=== PATIENT | female | born 1955 | race Caucasian/White ===

== ENCOUNTER → 2018-01-14 | Outpatient (CLI) | payer OTHER | LOC: M LRY 10:43 | DX: J93.9 Pneumothorax, unspecified (principal); J98.11 Atelectasis | CPT/HCPCS: 71046 ==

== ENCOUNTER → 2018-01-14 | Outpatient (REF) | payer OTHER ==
[2018-01-14 11:49] LABS: BASO # 0.1 10^3/uL (0.0-0.2); BASO % 0.8 % (0.0-1.0); EOS # 0.2 10^3/uL (0.0-0.50); EOS % 2.2 % (0.0-3.0); HEMATOCRIT 45.1 % (36.0-47.0); HEMOGLOBIN 15.3 g/dl (12.0-15.5); IMMATURE GRANULOCYTE % 0.3 % (0-3.0); LYMPH # 2.1 10^3/uL (1.5-4.5); LYMPH % 24.2 % (24.0-44.0); MEAN CORPUSCULAR HEMOGLOBIN 31.7 pg (27.0-33.0); MEAN CORPUSCULAR HGB CONC 33.9 g/dl (32.0-36.5); MEAN CORPUSCULAR VOLUME 93.4 fl (80.0-96.0); MONO # 0.6 10^3/uL (0.0-0.8); MONO % 6.3 % (0.0-5.0); NEUTROPHILS # 5.8 10^3/uL (1.8-7.7); NEUTROPHILS % 66.2 % (36.0-66.0); PLATELET COUNT, AUTOMATED 220 10^3/uL (150-450); RED BLOOD COUNT 4.83 10^6/uL (4.00-5.40); RED CELL DISTRIBUTION WIDTH 13.2 % (11.5-14.5); WHITE BLOOD COUNT 8.8 10^3/uL (4.0-10.0)
[2018-01-14 12:27] LABS: ANION GAP 6 MEQ/L (8-16); BLOOD UREA NITROGEN 17 MG/DL (7-18); CALCIUM LEVEL 9.7 MG/DL (8.8-10.2); CARBON DIOXIDE LEVEL 31 MEQ/L (21-32); CHLORIDE LEVEL 104 MEQ/L (98-107); CHOLESTEROL LEVEL 272 MG/DL (<200); CHOLESTEROL RISK RATIO 6.634 (<5); CREATININE FOR GFR 0.86 MG/DL (0.55-1.30); GLOMERULAR FILTRATION RATE > 60.0 (>45); GLUCOSE, FASTING 93 MG/DL (70-100); HDL CHOLESTEROL 41 MG/DL (>40); NON-HDL-C 231 MG/DL; POTASSIUM SERUM 4.9 MEQ/L (3.5-5.1); SODIUM LEVEL 141 MEQ/L (136-145); TRIGLYCERIDES LEVEL 180 MG/DL (<150)
== END ==
LOC: M SFHCLERA 10:20
DX: R22.1 Localized swelling, mass and lump, neck (principal); E78.00 Pure hypercholesterolemia, unspecified

== ENCOUNTER → 2018-03-10 | Outpatient (CLI) | payer OTHER ==
[2018-03-10 18:56] LABS: C REACTIVE PROTEIN QUANTITATIV < 0.30 MG/DL (0.00-0.30)
[2018-03-10 19:08] LABS: ERYTHROCYTE SEDIMENTATION RATE 10 mm/hr (0-30)
[2018-03-12 13:43] LABS: TISSUE TRANSGLUTAMINASE IgA <2 U/mL (0-3)
== END ==
LOC: M LRY 10:44
DX: R19.7 Diarrhea, unspecified (principal)
CPT/HCPCS: 84443

== ENCOUNTER → 2018-03-10 | Outpatient (CLI) | payer OTHER | LOC: M LRY 10:39 | DX: J84.9 Interstitial pulmonary disease, unspecified (principal) | CPT/HCPCS: 71046 ==

== ENCOUNTER → 2018-03-17 | Outpatient (CLI) | payer OTHER ==
[~2018-03-17] MED LIST: ISOVUE-370 76% 100ML VIAL (Q9967) As Ordered
== END ==
LOC: M RAD 11:07
DX: R05 Cough (principal); R22.1 Localized swelling, mass and lump, neck
CPT/HCPCS: Q9967

== ENCOUNTER 2018-04-05 07:12 | Day surgery (SDC) | payer OTHER ==
[2018-04-05] MEDS ORDERED: NS 1,000 ML IV (08:00)
[2018-04-05] MEDS ORDERED: PROPOFOL 500 MG/50 ML VIAL As Ordered (08:33)
[2018-04-05] MEDS ORDERED: LIDOCAINE 2% INJ 100 MG/5 ML SDV (FOR ANES.) As Ordered (08:33)
== END 2018-04-05 09:15 | disposition home or self-care (01) ==
LOC: M OPP 09:15
DX: R19.7 Diarrhea, unspecified (principal); Z80.0 Family history of malignant neoplasm of digestive organs; Z86.010 Personal history of colon polyps; K57.30 Diverticulosis of large intestine without perforation or abscess without bleeding; K64.8 Other hemorrhoids; R14.0 Abdominal distension (gaseous); M19.90 Unspecified osteoarthritis, unspecified site; F41.9 Anxiety disorder, unspecified; F32.9 Major depressive disorder, single episode, unspecified; R51 Headache; R06.83 Snoring; R06.02 Shortness of breath; Z87.09 Personal history of other diseases of the respiratory system; F17.210 Nicotine dependence, cigarettes, uncomplicated; Z79.899 Other long term (current) drug therapy
CPT/HCPCS: 45378

== ENCOUNTER → 2018-04-14 | Outpatient (REF) | payer OTHER | LOC: M LAB REF 15:00 | DX: D11.0 Benign neoplasm of parotid gland (principal) ==

== ENCOUNTER 2018-05-18 07:57 | Day surgery (SDC) | payer OTHER ==
[2018-05-18] MEDS: LR 1,000 ML IV (08:50)
[2018-05-18] MEDS ORDERED: dexameTHASONE 4 MG/ML 1ML VIAL (J1100) As Ordered (09:25)
[2018-05-18] MEDS ORDERED: fentaNYL 100 MCG/2 ML INJECTION (J3010) As Ordered (09:25)
[2018-05-18] MEDS ORDERED: SUCCINYLCHOLINE 100 MG/5 ML SYRINGE (J0330) As Ordered (09:25)
[2018-05-18] MEDS ORDERED: PROPOFOL 200 MG/20 ML VIAL As Ordered (09:25)
[2018-05-18] MEDS ORDERED: MIDAZOLAM INJ 2 MG/2 ML VIAL (J2250) As Ordered (09:25)
[2018-05-18] MEDS ORDERED: LIDOCAINE 2% INJ 100 MG/5 ML SDV (FOR ANES.) As Ordered (09:25)
[2018-05-18] MEDS ORDERED: REMIFENTANIL 1MG 3ML VIAL As Ordered (10:26)
[2018-05-18] MEDS ORDERED: ePHEDrine SULFATE 25 MG/5 ML(5MG/ML) SYRINGE As Ordered (10:30)
[2018-05-18] MEDS: dexameTHASONE 4 MG/ML 1ML VIAL (J1100) IV (10:30)
[2018-05-18] MEDS: BACITRACIN OINT 30GM As Ordered (10:50)
[2018-05-18] MEDS ORDERED: PHENYLephrine HCL 500 MCG/5 ML (100MCG/ML) SYRINGE (J2370) As Ordered (10:56)
[2018-05-18] MEDS ORDERED: GLYCOPYRROLATE INJ 0.2 MG/ML 2 ML VIAL As Ordered (10:58)
[2018-05-18] MEDS: LIDOCAINE W/EPINEPHRINE 1% 20ML VIAL As Ordered (11:00)
[2018-05-18] MEDS ORDERED: NORCO, ANEXSIA 5/325MG TABLET (HYDROcodone/ACETAMINOPHEN) As Ordered (12:43)
[2018-05-18] MEDS: NORCO, ANEXSIA 5/325MG TABLET (HYDROcodone/ACETAMINOPHEN) PO (12:45)
[2018-05-18] MEDS ORDERED: fentaNYL 100 MCG/2 ML INJECTION (J3010) IV (12:45)
[2018-05-18] MEDS ORDERED: ONDANSETRON 4MG/2ML VIAL (J2405) IV (12:45)
[2018-05-18] MEDS ORDERED: LR 1,000 ML IV ×2 (12:45)
== END 2018-05-18 13:45 | disposition home or self-care (01) ==
LOC: M SDC 13:45
DX: C07 Malignant neoplasm of parotid gland (principal); F17.210 Nicotine dependence, cigarettes, uncomplicated; F32.9 Major depressive disorder, single episode, unspecified; Z79.52 Long term (current) use of systemic steroids; Z79.899 Other long term (current) drug therapy
CPT/HCPCS: 42415

== ENCOUNTER → 2018-06-01 | Outpatient (CLI) | payer OTHER ==
[~2018-06-01] MED LIST changes: +IMOD2CAP PO; -ISOVUE-370 76% 100ML VIAL (Q9967) As Ordered
--- NOTE | 2018-06-01 15:54 | REP ---
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 The patient is status post left parotidectomy. Comparisons: Comparison soft-tissue neck CT study March 17, 2018. Chest CT was performed the same date. TECHNIQUE: 1 hour 10 minutes following the intravenous injection of a 8.1 mCi dose of F-18 FDG, three-dimensional PET scintigraphy is acquired from the skull base to the proximal thighs. Triplanar noncontrast CT scanning is acquired through the same anatomic range for attenuation correction, and image registration with scan parameters optimized to minimize radiation exposure to the patient. PET scintigraphy and CT datasets were fused and displayed on a workstation with multiplanar and projection display capability. PET/CT Findings: There is no abnormal uptake in head and neck soft tissues. The left parotid mass has been removed in the interval since the soft tissue neck CT study. No hypermetabolic cervical lymphadenopathy is seen. There is a mucous retention cyst in each maxillary sinus without abnormal uptake. No abnormal hypermetabolic uptake is seen within the mediastinum. The pre carinal and pretracheal lymph nodes seen on CT are not hypermetabolic. No abnormal hypermetabolic pulmonary parenchymal uptake is seen. In the abdomen and pelvis, normal hepatic, splenic, gastrointestinal and genitourinary FDG accumulation is seen. Impression: No abnormal hypermetabolic uptake. The patient is status post left parotidectomy. Electronically Signed by Alejandro Fuentes MD 06/01/2018 04:15 P
== END ==
LOC: M PLARAD 08:07
PROVIDERS: ATTEND Otolaryngology
DX: C07 Malignant neoplasm of parotid gland (principal)
CPT/HCPCS: 78815; A9552